=== PATIENT | male | born 1980 | race Caucasian/White ===

== ENCOUNTER 2020-10-12 07:30 | Inpatient (IN) | payer OTHER ==
[2020-10-06 09:48] LABS: HEMATOCRIT 40.9 % (37.9-51.0); HEMOGLOBIN 14.1 g/dL (13.5-17.0); MEAN CORPUSCULAR HGB CONC 34.4 g/dL (32.0-36.0); MEAN CORPUSCULAR VOLUME 87 fl (80-97); PLATELET COUNT 272 10^3/uL (150-450); WHITE BLOOD COUNT 5.6 10^3/uL (4.0-10.5)
[2020-10-06 09:51] LABS: APPEARANCE,URINE SLIGHTLY-CLOUDY; BILIRUBIN,URINE NEGATIVE (NEGATIVE); GLUCOSE, URINE NEGATIVE (NEGATIVE); KETONES,URINE NEGATIVE (NEGATIVE); LEUKOCYTE ESTERASE,URINE NEGATIVE (NEGATIVE); NITRITE,URINE NEGATIVE (NEGATIVE); PROTEIN,URINE 30 mg/dL (NEGATIVE); URINE SPECIFIC GRAVITY 1.038
[2020-10-06 09:52] LABS: COLOR,URINE DARK YELLOW
[2020-10-06 10:07] LABS: ANION GAP 9 (5-19); BLOOD UREA NITROGEN 17 mg/dL (7-20); CALCIUM 9.7 mg/dL (8.4-10.2); CARBON DIOXIDE 25 mmol/L (22-30); CHLORIDE 108 mmol/L (98-107); GLUCOSE 106 mg/dL (75-110); POTASSIUM 4.5 mmol/L (3.6-5.0)
[2020-10-06 10:11] LABS: ALCOHOL < 10 mg/dL (NONE DETECTED)
[2020-10-06 10:18] LABS: URINE AMPHETAMINES SCREEN NEGATIVE; URINE BARBITURATES SCREEN NEGATIVE; URINE BENZODIAZEPINES SCREEN NEGATIVE; URINE COCAINE SCREEN NEGATIVE; URINE MARIJUANA (THC) SCREEN NEGATIVE; URINE METHADONE SCREEN NEGATIVE; URINE PHENCYCLIDINE SCREEN NEGATIVE
--- NOTE | 2020-10-06 11:23 | RADIOLOGY REPORT (SQ) ---
EXAM DESCRIPTION: CHEST 2 VIEWS IMAGES COMPLETED DATE/TIME: 10/06/2020 10:12 am REASON FOR STUDY: PRE OP TESTING COMPARISON: None. EXAM PARAMETERS: NUMBER OF VIEWS: two views TECHNIQUE: Digital Frontal and Lateral radiographic views of the chest acquired. RADIATION DOSE: NA LIMITATIONS: none FINDINGS: LUNGS AND PLEURA: No opacities, masses or pneumothorax. No pleural effusion. MEDIASTINUM AND HILAR STRUCTURES: No masses or contour abnormalities. HEART AND VASCULAR STRUCTURES: Heart normal size. No evidence for failure. BONES: No acute findings. HARDWARE: None in the chest. OTHER: No other significant finding. IMPRESSION: NO ACUTE RADIOGRAPHIC FINDING IN THE CHEST. TECHNICAL DOCUMENTATION: JOB ID: [id number] 2010 [employer]- All Rights Reserved Reading location - IP/workstation name: [email or web address]
--- NOTE | 2020-10-06 23:35 | EKG REPORT ---
SEVERITY:- ABNORMAL ECG - SINUS RHYTHM ANTERIOR INFARCT, OLD : Confirmed by: Clarice Malave 06-Oct-2020 23:34:30
[~2020-10-12 07:30] MED LIST: CEFAZOLIN 2 GM/D5W RTU 2 GM/50 ML RTUPB IV ONE; CEFAZOLIN 2 GM/D5W RTU 2 GM/50 ML RTUPB IV PRN; LIDOCAINE 0.5% INJ-PF (5 MG/ML) 50 ML SDV SUBCUT PRN; RINGERS SOLUTION,LACTATED 1,000 ML IV PRN
[2020-10-12] MEDS ORDERED: ROCURONIUM BROMIDE INJ 50 MG/5 ML VIAL IV ONE (10:50)
[2020-10-12] MEDS ORDERED: SUCCINYLCHOLINE CHLORIDE INJ 200 MG/10 ML VIAL ONE (10:50)
[2020-10-12] MEDS ORDERED: METOCLOPRAMIDE HCL INJ/PF 10 MG/2 ML SDV ONE (10:50)
[2020-10-12] MEDS ORDERED: PHENYLEPHRINE HCL INJ/PF 10 MG/1 ML SDV ONE (10:50)
[2020-10-12] MEDS ORDERED: ONDANSETRON HCL INJ/PF 4 MG/2 ML SDV ONE (10:50)
[2020-10-12] MEDS ORDERED: HYDROMORPHONE HCL INJ/PF 2 MG/ML AMPULE ONE (11:30)
[2020-10-12] MEDS ORDERED: FENTANYL CITRATE INJ/PF 250 MCG/5 ML AMPULE ONE (11:30)
[2020-10-12] MEDS ORDERED: MIDAZOLAM 2 MG/2 ML INJ ONE (11:30)
[2020-10-12] MEDS ORDERED: PROPOFOL INJ 200 MG/20 ML VIAL IV ONE ×2 (11:31→14:26)
[2020-10-12] MEDS ORDERED: DEXAMETHASONE SOD PHOSPHATE INJ 4 MG/1 ML VIAL ONE (11:31)
[2020-10-12] MEDS ORDERED: EPHEDRINE SULFATE INJ 50 MG/1 ML AMPULE ONE (11:31)
[2020-10-12] MEDS ORDERED: HEPARIN SOD (PORCINE) 1,000 UNIT/ML 10 ML VIAL ONE (13:08)
[2020-10-12] MEDS ORDERED: BUPIVACAINE HCL 0.25 % INJ/PF (2.5 MG/1 ML) 30 ML VIAL ONE (13:08)
[2020-10-12] MEDS ORDERED: MINERAL OIL (STERILE) 10 ML VIAL ONE (13:09)
[2020-10-12] MEDS ORDERED: BUPIVACAINE INJ/PF LIPOSOME/PF 266 MG/20 ML SDV ONE (13:09)
[2020-10-12] MEDS ORDERED: BACITRACIN INJ 50,000 UNIT VIAL ONE ×2 (13:09→13:36)
[2020-10-12] MEDS ORDERED: MORPHINE SULFATE 10 MG/ML INJ IV PRN ×2 (13:49→14:43)
[2020-10-12] MEDS ORDERED: ACETAMINOPHEN 650 MG SUPP.RECT PR PRN (13:53)
[2020-10-12] MEDS ORDERED: PROMETHAZINE HCL INJ 25 MG/1 ML VIAL IM PRN (13:53)
[2020-10-12] MEDS ORDERED: DIPHENHYDRAMINE HCL 25 MG CAPSULE PO PRN (13:53)
[2020-10-12] MEDS ORDERED: MAGNESIUM HYDROXIDE SUSP 30 ML UDCUP PO PRN (13:53)
[2020-10-12] MEDS ORDERED: PROMETHAZINE HCL 25 MG TABLET PO PRN (13:53)
[2020-10-12] MEDS ORDERED: DIAZEPAM 5 MG TABLET PO PRN (13:53)
[2020-10-12] MEDS ORDERED: DIPHENHYDRAMINE HCL 50 MG/ML VIAL IV PRN ×2 (13:53→14:43)
[2020-10-12] MEDS ORDERED: ACETAMINOPHEN SOLN 325 MG/10.15 ML UDCUP PO PRN (13:53)
[2020-10-12] MEDS ORDERED: ONDANSETRON HCL INJ/PF 4 MG/2 ML SDV IV PRN (13:53)
[2020-10-12] MEDS ORDERED: RIZATRIPTAN BENZOATE 5 MG PO PRN (13:56)
[2020-10-12] MEDS ORDERED: THYROID 60 MG PO SCH (14:00)
[2020-10-12] MEDS ORDERED: CEFAZOLIN 2 GM/D5W RTU 2 GM/50 ML RTUPB IV SCH (14:00)
[2020-10-12] MEDS ORDERED: MEPERIDINE HCL/PF INJ 25 MG/1 ML DISP.SYRIN IV PRN (14:43)
[2020-10-12] MEDS ORDERED: PROMETHAZINE HCL INJ 25 MG/1 ML VIAL IV PRN ×2 (14:43)
[2020-10-12] MEDS ORDERED: FENTANYL CITRATE INJ/PF 100 MCG/2 ML AMPUL IV PRN ×3 (14:43)
[2020-10-12] MEDS ORDERED: OXYCODONE-ACETAMINOPHEN 5-325 MG TABLET PO PRN ×2 (14:43)
--- NOTE | 2020-10-12 16:03 | Operative Report ---
Operative Report DATE OF SURGERY: 10/12/20 PREOPERATIVE DIAGNOSIS: L5-S1 spondylolisthesis. L5-S1 instability and back pa in. L5-S1 stenosis. L5-S1 radiculitis right greater than left POSTOPERATIVE DIAGNOSIS: L5-S1 spondylolisthesis. L5-S1 instability and back pain. L5-S1 stenosis. L5-S1 radiculitis right greater than left. Status post anterior lateral interbody fusion with interbody spacer at L5-S1 posterior fusion instrumentation robotically assisted L5-S1 bilaterally and iliac crest aspiration left side through a separate incision for bone marrow aspirate for concentration allografting in interbody space. OPERATION: anterior lateral interbody fusion with interbody spacer at L5-S1 posterior fusion instrumentation robotically assisted L5-S1 bilaterally and iliac crest aspiration left side through a separate incision for bone marrow aspirate for concentration allografting in interbody space. SURGEON: LUDMILA WYLIE 1ST ENGINEERING AND DEVELOPMENT DIRECTOR: KIM SAMANO ANESTHESIA: GA TISSUE REMOVED OR ALTERED: Hardware utilized [employer] Voyager 6.5 x 50 mm screws x2 at L5 and 6.5 x 45 mm screws x2 at S1 20 mm mesh spacer through spineology calcium phosphate allograft COMPLICATIONS: None ESTIMATED BLOOD LOSS: 125 cc PROCEDURE: Patient is brought into the room placed under general anesthesia received 2 g of Ancef within 1 hour of cut time was placed on the Dougie table medial epicondyles and axillary areas are well-padded. Neuro monitoring leads for SSEP and cranial motor testing are placed on the patient as well as a Fall catheter is placed preoperatively. After appropriate surgical timeout the [employer] robot is utilized and on the right posterior superior iliac spine a pin is placed and attached to the robot. After obtaining registration imaging in the AP and oblique position and verification 6.5 x 50 mm screws x2 and 6.5 x 45 mm screws are inserted using portal incisions on the right and the left at L5-S1 bilaterally. Left iliac crest is aspirated at 2 different sites total of 50 cc of bone marrow aspirate are obtained and concentrated to be used an int erbody spacer with the allograft. Attention was then paid to the left sided anterior lateral portal for entry into the disc space which is carried out under navigation guidance upon verification also with x-rays and then stimulation thresholds greater than 17 mA. Upon inserting the portal into the disc space at L5-S1 fluoroscopy was used to verify the position as it did also to verify the screws position. Endplate mary and curettes and brushes are used to carry out a complete discectomy then the verify balloon is inserted to verify good contact with the endplates. Then the appropriate size mesh spacer is introduced into the interbody. The mesh spacer is soaked in bone marrow aspirate concentrate and is filled with bone graft showing good correction and good containment within the disc space at L5-S1. Upon neuro monitoring testing and cranial motor testing found to be stable then the portal is removed anterior laterally and attention is then paid to the placement of the rods upon using the caliper device the appropriate length rods were determined to be 40 mm rods on the right and on the left those are passed down and locked into position and final tightened. Then the tabs are removed and the portals are irrigated with copious amounts of irrigation and the posterior superior iliac spine pin connected to the robot is removed as well and the deep and superficial tissues were infiltrated with 1.3% Exparel 20 cc mixed with 20 cc of 0.5% bupivacaine plain. The portals are closed using 2-0 Vicryl and then Dermabond and Steri-Strips then 4 x 4's were used to cover the wounds on the right and the left and dressed with coverall tape. Please note that this procedure could not be done without the assistance of Idris Encinas working to assist with the placement of the screws positioning of the robot carrying out the aspiration through the left side iliac crest aspiration please also note that the iliac crest aspiration is carried out on the left side through a separate incision. Idris Encinas was instrumental throughout this whole process and I could not have done this procedure without his assistance as mentioned above.
--- NOTE | 2020-10-12 16:11 | RADIOLOGY REPORT (SQ) ---
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 FLUOROSCOPY TIME: 1.8 minutes 5 images saved to PACS. TECHNIQUE: Intra-operative images acquired during surgical procedure to evaluate progress. NUMBER OF IMAGES: 5 LIMITATIONS: None. FINDINGS: Intraoperative fluoroscopic images from posterior fusion L5-S1. IMPRESSION: IMAGE(S) OBTAINED DURING PROCEDURE. COMMENT: Quality ID [id number]: Final reports for procedures using fluoroscopy that document radiation exp osure indices, or exposure time and number of fluorographic images (if radiation exposure indices are not available) Please consult full operative report of the attending physician for description of the procedure. TECHNICAL DOCUMENTATION: JOB ID: [id number] 2010 [employer]- All Rights Reserved Reading location - IP/workstation name: [email or web address]
--- NOTE | 2020-10-12 16:11 | RADIOLOGY REPORT (SQ) ---
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 FLUOROSCOPY TIME: 1.8 minutes 5 images saved to PACS. TECHNIQUE: Intra-operative images acquired during surgical procedure to evaluate progress. NUMBER OF IMAGES: 5 LIMITATIONS: None. FINDINGS: Intraoperative fluoroscopic images from posterior fusion L5-S1. IMPRESSION: IMAGE(S) OBTAINED DURING PROCEDURE. COMMENT: Quality ID 145: Final reports for procedures using fluoroscopy that document radiation exp osure indices, or exposure time and number of fluorographic images (if radiation exposure indices are not available) Please consult full operative report of the attending physician for description of the procedure. TECHNICAL DOCUMENTATION: JOB ID: [id number] 2010 [employer]- All Rights Reserved Reading location - IP/workstation name: [email or web address]
[2020-10-12] MEDS ORDERED: METHOCARBAMOL INJ/PF 1000 MG/10 ML SDV ONE (16:14)
[2020-10-12] MEDS ORDERED: FENTANYL CITRATE INJ/PF 100 MCG/2 ML AMPUL ONE (16:41)
[2020-10-12] MEDS ORDERED: MORPHINE SULFATE 10 MG/ML INJ ONE (16:41)
[2020-10-12] MEDS: SENNOSIDES/DOCUSATE 8.6-50 MG 1 EACH TABLET PO SCH (18:52)
[2020-10-12] MEDS: ACETAMINOPHEN 325 MG TABLET PO PRN (18:52)
[2020-10-12] MEDS: CEFAZOLIN SODIUM 2 GM in DEXTROSE 5%-WATER 100 ML IV SCH (18:53)
[2020-10-12] MEDS: RINGERS SOLUTION,LACTATED 1,000 ML IV PRN (19:00)
[2020-10-12] MEDS: METHOCARBAMOL 750 MG TABLET PO PRN (22:07)
[2020-10-12] MEDS: OXYCODONE HCL IR 5 MG TABLET PO PRN (22:07)
[2020-10-13] MEDS: RINGERS SOLUTION,LACTATED 1,000 ML IV PRN (01:50)
[2020-10-13] MEDS: CEFAZOLIN SODIUM 2 GM in DEXTROSE 5%-WATER 100 ML IV SCH (03:00)
[2020-10-13] MEDS: ACETAMINOPHEN 325 MG TABLET PO PRN (03:10)
[2020-10-13] MEDS ORDERED: SUMATRIPTAN SUCCINATE 50 MG TABLET PO PRN ×2 (07:54→08:00)
[2020-10-13] MEDS: METHOCARBAMOL 750 MG TABLET PO PRN (08:12)
[2020-10-13 09:44] VITALS: BP 117/71
[2020-10-13] MEDS: SENNOSIDES/DOCUSATE 8.6-50 MG 1 EACH TABLET PO SCH (09:59)
[2020-10-13] MEDS: OXYCODONE HCL IR 5 MG TABLET PO PRN (09:59)
[2020-10-13] MEDS ORDERED: THYROID PORK 120 MG PO SCH (10:00)
[2020-10-14] MEDS ORDERED: BISACODYL 5 MG TABEC PO PRN (05:00)
[2020-10-14] MEDS ORDERED: BISACODYL 10 MG SUPP.RECT PR PRN (05:00)
== END 2020-10-13 10:30 | disposition home or self-care (01) | DRG 460 ==
LOC: INOR 10:00 → 4N 18:31
PROVIDERS: ADMIT Orthopaedic Surgery; ATTEND Orthopaedic Surgery
PROC: 07DR3ZZ Extraction of Iliac Bone Marrow, Percutaneous Approach (ICD-10-PCS; 2020-10-12)
PROC: 0SG Lower Joints, Fusion (ICD-10-PCS; principal; 2020-10-12 12:00)
DX: M43.17 Spondylolisthesis, lumbosacral region (principal); M54.17 Radiculopathy, lumbosacral region; M48.07 Spinal stenosis, lumbosacral region; M51.17 Intervertebral disc disorders with radiculopathy, lumbosacral region
CPT/HCPCS: 00630; 36415; 71046; 72100; 80048; 80307; 81001; 85027; 86850; 86900; 86901; 87070; 87635; 93005; 93010; 94760; 94799; C9290; C9803; J0330; J0690; J1100; J1170; J1644; J2250; J2270; J2370; J2405; J2704; J2765; J2800; J3010; J3490; J7060; J7120